=== PATIENT | female | born 1940 | race Caucasian/White ===

== ENCOUNTER 2023-09-16 11:38 | Observation (INO) | payer MEDICARE, OTHER ==
[~2023-09-16] VITALS: Ht 165.1 cm; Wt 61.2 kg
[2023-09-16 12:22] LABS: BASOPHILS ABSOLUTE AUTO 0.05 K/mm3 (0.00-0.23); BASOPHILS PERCENT AUTO 1 % (0-2); EOSINOPHILS ABSOLUTE AUTO 0.09 K/mm3 (0.00-0.68); EOSINOPHILS PERCENT AUTO 1 % (0-6); IMMATURE GRAN ABSOLUTE AUTO 0.02 K/mm3 (0.00-0.10); IMMATURE GRAN PERCENT AUTO 0 % (0-1); LYMPHOCYTES ABSOLUTE AUTO 1.54 K/mm3 (0.84-5.20); LYMPHOCYTES PERCENT AUTO 17 % (21-46); MONOCYTES ABSOLUTE AUTO 0.61 K/mm3 (0.16-1.47); MONOCYTES PERCENT AUTO 7 % (4-13); Mean Corpuscular HGB 30.6 pg (26.0-34.0); Mean Corpuscular HGB Conc 34.1 g/dL (31.5-36.5); Mean Corpuscular Volume 90 fL (80-100); NEUTROPHILS ABSOLUTE AUTO 6.52 K/mm3 (1.96-9.15); NEUTROPHILS PERCENT AUTO 74 % (41-73); Platelet Count 180 K/mm3 (150-400); RDW Coefficient Variation 13.6 % (11.7-14.2); RDW Standard Deviation 44.8 fL (35.1-46.3); Red Blood Cell Count 4.57 M/mm3 (3.80-5.20); White Blood Cell Count 8.83 K/mm3 (4.00-11.30)
[2023-09-16 12:40] LABS: Calcium, Blood 9.4 mg/dL (8.5-10.1); Creatinine, Blood 0.77 mg/dL (0.40-1.00); Potassium, Blood 3.8 mmol/L (3.5-5.5)
[2023-09-16] MEDS ORDERED: Aspirin 325 MG Tab PO ONE (13:10)
[2023-09-16] MEDS ORDERED: Clopidogrel Bisulfate 75 MG Tab PO ONE (13:15)
[2023-09-16 14:17] LABS: CHOL/HDL RATIO 2.2; Cholesterol 124 mg/dL (50-200); HDL Cholesterol 57 mg/dL (>39); LDL/HDL RATIO 0.8; Low Density Lipoprotein Chol 47 mg/dL (0-110); Triglycerides 98 mg/dL (30-160); Very Low Density Lipoprot Chol 19 mg/dL (6-32)
[2023-09-16 16:13] VITALS: BP 153/80
[2023-09-16] MEDS ORDERED: CARVEDILOL25 M9 PO (16:27)
[2023-09-16] MEDS ORDERED: ATOR40TA PO (16:27)
[2023-09-16] MEDS ORDERED: LISINOPRIL2.5 MG PO (16:28)
[2023-09-16] MEDS ORDERED: Hair, Skin & N1 EACH PO (16:29)
--- NOTE | 2023-09-16 17:26 | NUR ---
BEDSIDE SWALLOW BEDSIDE SWALLOW DONE. PATIENT ABLE TO COUGH AND SWALLOW ON COMMAND. PATIENT ABLE TO DRINK LIQUIDS WITHOUT AND WITH STRAW. PATIENT ABLE TO TOLERATE APPLESAUCE WITHOUT AND DIFFICULTY SWALLOWING OR COUGHING. HEART HEALTHY DIET ORDERED PER DR. NAYAK
--- NOTE | 2023-09-16 18:26 | NUR ---
ADMISSION NOTE: PATIENT ARRIVES TO ROOM AT 1615 VIA GURNEY FROM ER FOR DX'S OF CVA. PATIENT AMBULATED TO BATHROOM c SBA, STEADY c GAIT, NO ASSISTIVE DIVICES NEEDED c AMBULATION. MEDRIC, ADMISSION AND SKIN ASSESSMENT COMPLETED. PATIENT ORIENTATED TO ROOM AND CALL SYSTEM. PATIENT A/OX4, PLEASANT AND COOPERATIVE c CARE. PERRLA, REDNESS TO R EYE, SENSATIONS INTACT AND STRENGTH ARE EQUALLY STRONG TO ALL EXTREMITIES, NO DEFICIT NOTED. PATIENT REPORTS "I NOTICED SINCE MY HEADACHE STARTED YESTERDAY I HAVE SOME ISSUE'S REMEMBERING STUFF AND THIS IS NOT MY NORMAL ME.".PATIENT ON HEART HEALTHY DIET, EATING AND DRINKING DRINKING WELL, NO COUGHING OR ANY SIGNS OF DIFFICULTY SWALLOWING. PATIENT ON TELE, NSR HR IN THE HIGH 70'S BPM. VITAL SIGNS REVIEWED. CALL LIGHT IN REACH.
[2023-09-16 19:17] VITALS: BP 118/52
[2023-09-16] MEDS ORDERED: Acetaminophen 500 MG Tab PO PRN (20:25)
[2023-09-17 02:21] VITALS: BP 126/50
[2023-09-17 04:56] LABS: BASOPHILS ABSOLUTE AUTO 0.05 K/mm3 (0.00-0.23); BASOPHILS PERCENT AUTO 1 % (0-2); EOSINOPHILS PERCENT AUTO 1 % (0-6); Hematocrit 40.2 % (33.0-51.0); Hemoglobin 13.4 g/dL (11.5-16.0); IMMATURE GRAN ABSOLUTE AUTO 0.02 K/mm3 (0.00-0.10); IMMATURE GRAN PERCENT AUTO 0 % (0-1); LYMPHOCYTES ABSOLUTE AUTO 2.04 K/mm3 (0.84-5.20); LYMPHOCYTES PERCENT AUTO 29 % (21-46); MONOCYTES ABSOLUTE AUTO 0.65 K/mm3 (0.16-1.47); MONOCYTES PERCENT AUTO 9 % (4-13); Mean Corpuscular HGB 30.3 pg (26.0-34.0); Mean Corpuscular HGB Conc 33.3 g/dL (31.5-36.5); Mean Corpuscular Volume 91 fL (80-100); Mean Platelet Volume 11.1 fL (9.1-12.4); NEUTROPHILS ABSOLUTE AUTO 4.15 K/mm3 (1.96-9.15); NEUTROPHILS PERCENT AUTO 59 % (41-73); Platelet Count 165 K/mm3 (150-400); RDW Coefficient Variation 13.6 % (11.7-14.2); RDW Standard Deviation 45.7 fL (35.1-46.3); Red Blood Cell Count 4.42 M/mm3 (3.80-5.20); White Blood Cell Count 7.01 K/mm3 (4.00-11.30)
[2023-09-17 05:18] LABS: Albumin, Blood 3.5 g/dL (3.4-5.0); Albumin/Globulin Ratio 1.3 (0.8-1.8); Bilirubin, Total 0.8 mg/dL (0.1-1.0); Bun/Creatinine Ratio 18.3 (12.0-20.0); Calcium, Blood 8.8 mg/dL (8.5-10.1); Creatinine, Blood 0.76 mg/dL (0.40-1.00); Globulin, Blood 2.7 g/dL (2.2-4.0); Potassium, Blood 3.5 mmol/L (3.5-5.5); Total Protein, Blood 6.2 g/dL (6.4-8.2)
[2023-09-17 07:27] VITALS: BP 148/69
[2023-09-17] MEDS ORDERED: Clopidogrel Bisulfate 75 MG Tab PO SCH (09:00)
[2023-09-17] MEDS ORDERED: Enoxaparin 40 MG/0.4 ML SYR SC SCH (09:00)
[2023-09-17] MEDS ORDERED: Aspirin 81 MG Chew PO SCH (09:00)
[2023-09-17] MEDS ORDERED: ACET500 PO (13:14)
[2023-09-17] MEDS ORDERED: CLOP75 PO (13:15)
[2023-09-17] MEDS ORDERED: ASPI81CH PO (13:15)
--- NOTE | 2023-09-17 15:00 | NUR ---
SHIFT/DISCHARGE SUMMARY: PATIENT A/OX4, CALM, PLEASANT AND COOPERATIVE c CARE. PATIENT DENIES CP/PRESSURE, SOB, N/V, DIZZINESS AND HEADACHE. PATIENT PERRLA WNL, SENSATION AND STRENGTH ARE INTACT TO ALL EXTREMITIES c NO DEFICIT NOTED. PATIENT REPORTS "MY MEMORIES HAS IMPROVED AND I REMEMBER MORE STUFF NOW COMPARED YESTERDAY AND NO QUICK TODAY." PATIENT RECEIVED SCHEDULED MEDS PER EMAR. VITAL SIGNS REVIEWED. PIV TO L FOREARM AND RAC DC'D. PATIENT DISCHARGE HOME. DISCHARGE INSTRUCTION PACKET GIVEN TO PATIENT. EDUCATE PATIENT REGARDING ADMITITNG DX'S OF CVA, S/S, TX, RX, SELF CARE AND TO F/U c PCP. PATIENT VERBALIZED UNDERSTANDING AND NO FURTHER QUESTIONS AT THIS TIME. RX FAXED TO PATIENT PREFERRED [facility] ([facility] ALL PATIENT PERSONAL BELONGINGS WERE SENT HOME c THE PATIENT PATIENT LEFT THE ROOM AT 1400 AND WAS TRANSPORTED VIA WHEELCHAIR BY [employer] STAFF TO PATIENT ENTRANCE.
== END 2023-09-17 14:09 | disposition home or self-care (01) ==
LOC: ER 11:38 → MEDS 11:39
PROVIDERS: Emergency Medicine; ADMIT Internal Medicine
DX: I63.432 Cerebral infarction due to embolism of left posterior cerebral artery (principal); I25.10 Atherosclerotic heart disease of native coronary artery without angina pectoris; I10 Essential (primary) hypertension; E78.00 Pure hypercholesterolemia, unspecified
CPT/HCPCS: 36415; 70450; 70496; 70498; 80048; 80053; 80061; 83036; 85025; 92610; 93306; 97116; 97161; A9270; J1650; Q9967